=== PATIENT | female | born 1965 | race Caucasian/White ===

== ENCOUNTER 2017-09-11 19:38 | Emergency (ER) | payer OTHER ==
[~2017-09-11] VITALS: Ht 154.9 cm; Wt 59.0 kg
[2017-09-11 19:51] VITALS: BP 137/79
--- NOTE | 2017-09-11 19:59 | NUR ---
TO LOBBY AMB,A/W TRACY WISE ERMD NOTED
--- NOTE | 2017-09-11 22:25 | NUR ---
52/F CAME IN W C/O PERSISTENT COUGH X 8 DAYS. PER PT SHE HAS BEEN SEEN BY PMD X 3, RX: BENZONATATE WITHOUT RELIEF OF SYMTPOMS. DENIES FEVER, REPORTS CHILLS, REPORTS CHEST WALL AND BACK PAIN DURING COUGHING. 20RR EVEN AND UNLABORED, ALL LUNG SOUNDS CBTA, SATS 99%RA. DENIES OTHER PMH/RX/OTC
[2017-09-12] MEDS ORDERED: guaiFENesin/CODEINE 100/10MG 5 ML UDC PO ONE (00:05)
[2017-09-12] MEDS ORDERED: ALBUTEROL 0.083% 2.5 MG/3 ML NEBU INH ONE (00:50)
--- NOTE | 2017-09-12 01:01 | NUR ---
ADMITTING DX: COUGH AWAKE AND ALERT RESPONSIVE TO PAPER STRIPPER VERBAL COMMANDS HFW SKIN TONE PINK EDUCATION PROVIDED TO PATIENT WITH ACKNOWLEDGEMENT ON [facility] THERAPY AND RESPIRATORY DRUG ENCOURAGED PATIENT FOR DEEP BRATHING DURING THERAPY TOLRATED WELL WITHOUT ADVERSE REACTINS NOTED
[2017-09-12] MEDS ORDERED: IBUPROFEN 800 MG TAB ONE (01:42)
[2017-09-12 02:00] VITALS: BP 132/75
--- NOTE | 2017-09-12 02:15 | NUR ---
Patient discharged with v/s stable. Written and verbal after care instructions given and explained. Patient alert, oriented and verbalized understanding of instructions. Ambulatory with steady gait. All questions addressed prior to discharge. ID band removed. Patient advised to follow up with PMD. Rx of PROAIR HFA 90MCG, CODEINE PHOSPHATE, AZITHROMYCIN 250MG given. Patient educated on indication of medication including possible reaction and side effects. Opportunity to ask questions provided and answered.
== END 2017-09-12 02:00 | disposition home or self-care (01) ==
LOC: MED 19:38
DX: J20.9 Acute bronchitis, unspecified (principal); J11.1 Influenza due to unidentified influenza virus with other respiratory manifestations
CPT/HCPCS: 71045; 93005; 94640; 99284; J7613

== ENCOUNTER 2017-09-16 15:45 | Emergency (ER) | payer OTHER ==
[~2017-09-16] VITALS: Ht 160 cm; Wt 59.9 kg
[2017-09-16 16:04] VITALS: BP 122/78
--- NOTE | 2017-09-16 16:07 | NUR ---
pt to lobby awaiting room, er aware, pt is ao, vss, nad
[2017-09-16] MEDS ORDERED: DEXAMETHASONE 10 MG/ML VIAL IM ONE (16:20)
[2017-09-16] MEDS ORDERED: IPRATROPIUM 0.02% 0.5 MG/2.5 ML NEBU INH ONE (16:20)
[2017-09-16] MEDS ORDERED: ALBUTEROL 0.083% 2.5 MG/3 ML NEBU INH ONE (16:20)
--- NOTE | 2017-09-16 16:46 | NUR ---
52f bib son with c/o mild sob, cough, fever x 2 wks hx--denies, NO SOB NOTED AT THIS TIME, NO COUGHING PT CALM, SKIN WARM TO TOUCH RESP. EVEN AND UNALBORED
--- NOTE | 2017-09-16 16:59 | NUR ---
RT AT BEDSIDE FOR HHN
--- NOTE | 2017-09-16 17:15 | NUR ---
Patient discharged with v/s stable. Written and verbal after care instructions given and explained. Patient alert, oriented and verbalized understanding of instructions. Ambulatory with steady gait. All questions addressed prior to discharge. ID band removed. Patient advised to follow up with PMD. Rx of albuterol,azithromycin,codeine phosphate,prednisone given. Patient educated on indication of medication including possible reaction and side effects. Opportunity to ask questions provided and answered.
[2017-09-16 17:16] VITALS: BP 122/78
== END 2017-09-16 17:15 | disposition home or self-care (01) ==
LOC: MED 15:45
DX: J45.909 Unspecified asthma, uncomplicated (principal)
CPT/HCPCS: 71046; 94640; 96372; 99284; J1100; J7613; J7644

== ENCOUNTER 2020-11-06 15:29 | Emergency (ER) | payer BC, MEDICAID ==
[~2020-11-06] VITALS: Ht 157.5 cm; Wt 61.2 kg
[2020-11-06 15:33] VITALS: BP 131/77
--- NOTE | 2020-11-06 15:41 | NUR ---
PT W/C ASSISTED TO BED 7.
[2020-11-06] MEDS ORDERED: diazePAM 5 MG TAB PO ONE (15:45)
[2020-11-06] MEDS ORDERED: KETOROLAC 30 MG/ML VIAL IM ONE (15:45)
[2020-11-06 16:10] VITALS: BP 131/77
--- NOTE | 2020-11-06 16:25 | NUR ---
see complete assessment.
--- NOTE | 2020-11-06 16:30 | NUR ---
med response to toradol IM. pt states pain still / but slightly decreased from initial pain. Dr. Vasquez made aware.
[2020-11-06] MEDS ORDERED: fentaNYL citrate 0.05 MG/ML VIAL NS ONE (16:45)
--- NOTE | 2020-11-06 16:52 | NUR ---
medicated with fentanyl NS. pt tolerated well.
[2020-11-06] MEDS ORDERED: NAPR-54 PO (17:07)
[2020-11-06] MEDS ORDERED: DIAZ5TAB7 PO (17:11)
--- NOTE | 2020-11-06 17:11 | NUR ---
states pain decreased to 4/10. Dr. Vasquez made aware.
--- NOTE | 2020-11-06 17:24 | NUR ---
Patient discharged with v/s stable. Written and verbal after care instructions given and explained. Patient alert, oriented and verbalized understanding of instructions. Ambulatory with steady gait. All questions addressed prior to discharge. ID band removed. Patient advised to follow up with PMD. Rx of naprosyn and valium given. Patient educated on indication of medication including possible reaction and side effects. Opportunity to ask questions provided and answered.
== END 2020-11-06 17:24 | disposition home or self-care (01) ==
LOC: MED 15:29
DX: M54.42 Lumbago with sciatica, left side (principal); J45.909 Unspecified asthma, uncomplicated; Z90.49 Acquired absence of other specified parts of digestive tract; Z79.899 Other long term (current) drug therapy
CPT/HCPCS: 72100; 73502; 96372; 99284; J1885; J3010

== ENCOUNTER 2023-08-06 10:16 | Emergency (ER) | payer MEDICAID ==
[~2023-08-06] VITALS: Ht 157.5 cm; Wt 59.0 kg
[~2023-08-06 10:16] MED LIST: DIAZ5TAB8 PO; NAPR-54 PO
[2023-08-06 10:36] VITALS: BP 119/72; PULSE 89; RESP 18; TEMP 98; O2SAT 98
[2023-08-06 11:21] LABS: FLU A ANTIGEN negative (NEGATIVE); FLU B ANTIGEN negative (NEGATIVE)
[2023-08-06] MEDS ORDERED: FAMO-92 PO ×2 (12:05→12:48)
[2023-08-06] MEDS ORDERED: PROM118S5 PO ×2 (12:05→12:48)
[2023-08-06] MEDS ORDERED: NIRM1TAB PO ×2 (12:05→12:48)
== END 2023-08-06 12:19 | disposition home or self-care (01) ==
LOC: MED 10:16
DX: U07.1 COVID-19 (principal); J45.909 Unspecified asthma, uncomplicated; Z98.890 Other specified postprocedural states; Z90.49 Acquired absence of other specified parts of digestive tract; Z79.899 Other long term (current) drug therapy; Z79.1 Long term (current) use of non-steroidal anti-inflammatories (NSAID)
CPT/HCPCS: 71045; 99284